=== PATIENT | male | born 1945 | race Caucasian/White ===

== ENCOUNTER 2021-09-11 01:23 | Outpatient (CLI) | payer OTHER, SELFPAY ==
--- NOTE | 2021-09-11 | DI.RAD_ITS ---
Exam(s) XR CHEST 2V PA LATERAL EXAM: XR CHEST 2V PA LATERAL CLINICAL HISTORY: PNEUMOTHORAX J93.9 TECHNIQUE: COMPARISON: No exams were available for comparison FINDINGS: There is elevation of the diaphragm on the right. Heart is not enlarged. Lungs appear generally denise ar. No pleural effusion seen. No evidence of acute process. No evidence of pneumothorax. IMPRESSION: RADIATION DOSE DELIVERED: Total DLP
== END 2021-09-11 01:43 ==
PROVIDERS: PCP Internal Medicine; Visit Provider Chiropractor
DX: J93.9 Pneumothorax, unspecified (principal)
CPT/HCPCS: 71046

== ENCOUNTER 2021-09-11 02:56 | Outpatient (CLI) | payer OTHER, SELFPAY ==
[2021-09-11] MEDS: Inhaler, Assist Device 1 EACH MC (11:05)
[2021-09-11] MEDS: Albuterol HFA 18 GM 200 PUFF INH IH (11:05)
== END 2021-09-11 02:57 | disposition home or self-care (01) ==
PROVIDERS: PCP Internal Medicine; Visit Provider Chiropractor
DX: J93.9 Pneumothorax, unspecified (principal); Z90.2 Acquired absence of lung [part of]; J44.1 Chronic obstructive pulmonary disease with (acute) exacerbation; Z87.891 Personal history of nicotine dependence
CPT/HCPCS: 94060

== ENCOUNTER 2022-03-20 02:04 | Outpatient (CLI) | payer OTHER, SELFPAY ==
[2022-03-20] MEDS: Albuterol HFA 18 GM 200 PUFF INH IH (13:17)
[2022-03-20] MEDS: Inhaler, Assist Device 1 EACH MC (13:17)
--- NOTE | 2022-03-27 16:25 | W.PFT ---
Date of service: 03/20/22 Time of Service: 12:51 Pulmonary Function Test Result Requesting Provider Gab Barone Indications: Chronic bronchitis Interpretation Spirometry: There is no airflow limitation. There is no significant bronchodilator response. The FVC is borderline low. Impression No apparent obstruction. The low FVC may be due to pseudo-obstruction from obesity, however cannot rule out restrictive lung disease such as ILD. Clinical Correlation therefore is recommended.
== END 2022-03-20 02:05 | disposition home or self-care (01) ==
PROVIDERS: PCP Internal Medicine; Visit Provider Chiropractor
DX: J42 Unspecified chronic bronchitis (principal); Z87.891 Personal history of nicotine dependence
CPT/HCPCS: 94060

== ENCOUNTER 2022-11-16 01:19 | Outpatient (CLI) | payer OTHER, SELFPAY ==
--- NOTE | 2022-11-16 12:07 | DI.RAD_ITS ---
Exam(s) XR CHEST 2V PA LATERAL EXAM: XR CHEST 2V PA LATERAL CLINICAL HISTORY: COUGH >8 WKS, S/P SURGERY, COPD, PMH PNEUMOTHORAX, [id number] TECHNIQUE: 2D digital imaging was performed. COMPARISON: CR XR CHEST 2V PA LATERAL from 09/11/2021 FINDINGS: Stable elevation of the right diaphragm. HEART: Normal size. Aorta: Not dilated. PULMONARY VASCULATURE: Normal. LUNGS: Mild scarring and emphysematous changes. No infiltrate or pulmonary edema. PLEURAL SPACE: No pleural effusion or pneumothorax. BONE:Unremarkable for age. IMPRESSION: No acute abnormality. DATA REPOSITORY: RADIATION DOSE DELIVERED:
== END 2022-11-16 01:39 ==
LOC: DI 01:20
PROVIDERS: PCP Internal Medicine; Visit Provider Internal Medicine
DX: R05.3 Chronic cough (principal); J44.1 Chronic obstructive pulmonary disease with (acute) exacerbation; Z87.891 Personal history of nicotine dependence; J93.9 Pneumothorax, unspecified
CPT/HCPCS: 71046